=== PATIENT | female | born 1990 | race Caucasian/White ===

== ENCOUNTER 2017-11-23 11:58 | Emergency (ER) | payer OTHER ==
[~2017-11-23] VITALS: Ht 165.1 cm; Wt 59.0 kg
[~2017-11-23 11:58] MED LIST: BCPILLS PO; RIVA1.5T PO; RIVA1TAB4 PO
[2017-11-23 12:00] VITALS: Ht 165.1 cm; Wt 59.0 kg
--- NOTE | 2017-11-23 14:53 | DIAGNOSTIC IMAGING REPORT ---
RIGHT UPPER EXTREMITY VENOUS DOPPLER ULTRASOUND CLINICAL HISTORY: RUE; hx DVT, swelling, tenderness tricep COMPARISON STUDY: No previous studies for comparison. FINDINGS: The right internal jugular, subclavian, axillary, brachial, basilic, radial and ulnar veins are patent. There is no deep venous thrombus within the right upper extremity. IMPRESSION: No deep venous thrombus within the right upper extremity. Electronically signed by: Migue Bernal M.D. 11/23/2017 2:52 PM Dictated Date/Time: 11/23/2017 2:51 PM
[2017-11-23 15:30] VITALS: BP 130/87; PULSE 65; TEMP 36.3; O2SAT 98
--- NOTE | 2017-11-25 11:34 | EMERGENCY ROOM VISIT NOTE ---
ED Visit Note First contact with patient: 12:39 Chief Complaint: I am having right upper arm pain and right upper leg pain. History of Present Illness: Ms. Pulido is a 27-year-old white female who ambulates into the ED complaining of right lower leg pain and right upper arm pain. Historically patient reports she has a history of a lower extremity DVT. Patient reports she has been having ongoing intermittent pain starting in her right buttocks and radiating down the posterior aspect of the thigh to just superior to the knee for the last 2 weeks. She reports the pain has been intermittent. She has difficulty describing her discomfort. She rates her discomfort 5/10. Her pain intermittently worsens with walking, sitting, exercise and palpation. She has not identified any alleviating factors related to the pain. She has not taken any medications for pain prior to arrival at the hospital. Additionally patient complains of pain over the left inferior aspect of the trapezius muscle. She reports this pain started approximately 5 days ago after an exercise class. Since that time her pain has been constant. She describes her pain as a cramping sensation. She rates her discomfort 5/10. She denies radiation of her discomfort. Her pain worsens with flexion and extension of the elbow and palpation. She has not identified any alleviating factors related to the pain. Patient denies any associated symptoms with these pains including fevers, chills , sweats, skin eruptions, skin color changes, upper respiratory tract symptoms, cough, wheezing, shortness of breath, palpitations, orthopnea, dependent edema, claudication, abdominal pain, decreased appetite, nausea/vomiting, genital paresthesias, bowel and bladder dysfunction, extremity weakness/numbness/ tingling. Review of Systems: As noted above in history of present illness. All body systems were reviewed and found to be negative as noted above. Past Medical History: Left lower extremity DVT, asthma. Current Medications: Patient denies. Allergies to Medications: Penicillin. Social History: Patient is currently university student; she feels safe in her home environment; she denies tobacco use and admits to alcohol use. Physical Examination: Vital Signs: Date Time Temp Pulse Resp B/P (MAP) Pulse Ox O2 Delivery O2 Flow Rate FiO2 11/23/17 15:30 36.3 65 18 130/87 98 11/23/17 12:00 36.3 65 18 130/87 98 GENERAL: 27-year-old female in mild distress due to pain, nontoxic-appearing, afebrile and hemodynamically stable. NEUROLOGICAL: Awake, alert and oriented to person, place and time. Answering questions appropriately and following commands. Normal gait. Good hand eye coordination. No focal motor sensory deficits. SKIN: Warm, dry and pink. HEENT: Atraumatic and normocephalic. BACK: No tenderness over the bony thoracic and lumbar spine. No tenderness throughout the paraspinous muscles and no palpable spasm. Full range of motion of the lumbar spine. Negative straight leg raise test. No CVA tenderness. THORAX: Lungs sounds are clear to auscultation and equal bilaterally with symmetrical chest wall. No wheezing, rales or rhonchi. No crepitus, tenderness , subcutaneous air or deformities noted. HEART: Regular rate and rhythm. No gallops, rubs or murmurs are appreciated. ABDOMEN: Flat, soft and nontender. Positive bowel sounds in all quadrants. RIGHT UPPER EXTREMITY: No gross bony deformity. No tenderness in the shoulder, elbow, forearm or wrist. Patient does have mild tenderness over the distal aspect of the triceps muscle above the olecranon process. I do not feel any muscular deficits. This area is also mildly erythematous and edematous. The skin does not appear cellulitic and is not warm/hot to the touch. I do not feel any palpable abscesses. Patient does have full range of motion of the shoulder, elbow and forearm against resistance. 5/5 muscle strength in all movements of the shoulder, elbow and forearm. Distal extremity is warm and pink and capillary refill is intact. RIGHT LOWER EXTREMITY: No gross bony deformity. No shortening or malrotation. No tenderness over the hip, thigh, knee or lower leg. Patient has mild tenderness in the upper medial portion of the buttocks. This tenderness extends down to just inferior to the buttocks and the posterior thigh. The tenderness appear musculature without bony involvement. I do not appreciate any tenderness over the sacrum or coccyx. 2+ patellar and Achilles deep tendon reflexes intact and equal bilaterally. There is no erythema or edema in this area. Full range of motion and muscle strength of the hip and knee against resistance. Throughout the lower portion of the extremity the skin is warm and pink and capillary refill is brisk. Distal pulses and sensation light touch is intact. EXTREMITIES: Moves all extremities well on command and with purpose. All distal neurovascular statuses are intact and equal bilaterally. No calf tenderness or cords. ED Course: Patient is assessed as noted above. Patient's medication list was reviewed. Patient was offered pain medication and refused. Right Upper Extremity Venous Doppler Ultrasound: Was reviewed by myself and read by the radiologist showing no deep vein thrombus. Patient was educated about today's findings and instructed on her treatment plan ; she verbalized understanding and agreement with this plan. Clinical Impression: Right trapezius strain. Right gluteal pain possible sciatica. Disposition: Patient discharged to home in stable condition; prior to departure she was reassessed and subjectively reported she was pain-free. Plan: Comfort measures were discussed with the patient including rest from exercise, alternating ibuprofen and acetaminophen every 3 hours for pain, ice for pain. Patient was encouraged to follow-up with [facility] or return to the ED for worsening/uncontrolled pain, uncontrolled pain of the swelling, extremity weakness/numbness/tingling.
== END 2017-11-23 15:31 | disposition home or self-care (01) ==
LOC: C.EDB 11:59 → C.EDD 15:31
DX: S46.811A Strain of other muscles, fascia and tendons at shoulder and upper arm level, right arm, initial encounter (principal); X50.9XXA Other and unspecified overexertion or strenuous movements or postures, initial encounter; M79.1 Myalgia; J45.909 Unspecified asthma, uncomplicated; Z86.718 Personal history of other venous thrombosis and embolism; Z88.0 Allergy status to penicillin